=== PATIENT | male | born 1950 | race Caucasian/White ===

== ENCOUNTER 2020-06-16 16:56 | Emergency (ER) | payer SELFPAY ==
[2020-06-16] MEDS: Sodium Chloride 0.9% 1,000 ML IV ONE ×4 (17:46→20:09)
--- NOTE | 2020-06-16 20:05 | EDM.PDOC ---
ED HPI GENERAL MEDICAL PROBLEM - General Chief Complaint: Gastrointestinal Problem Stated Complaint: WEAKNESS Time Seen by Provider: 06/16/20 17:00 Source of Information: Reports: Patient, RN Notes Reviewed History Limitations: Reports: Other (acutely ill) - History of Present Illness INITIAL COMMENTS - FREE TEXT/NARRATIVE: Mr. Ty presents to the ER via ambulatory for weakness and stomachache. States he has blood in his urine yesterday. Noon today his stomach was upset and he vomited around 1530. States he did have a BM today. Patient reports he does not seek medical care regularly. He is hypotensive, he has chest congestion with crackles. His skin is dry with erythema noted to both cheeks. No Fever or diarrhea. Normal HRR. 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 Respiratory: Reports: Other (crackles) Cardiovascular: Reports: Other (hypotensive) : Reports: Hematuria, Incontinence Skin: Reports: Dryness, Bruising, Erythema, Change in Color ED EXAM, GI/ABD - Physical Exam Exam: See Below Exam Limited By: Other (acutely ill) General Appearance: Moderate Distress Ears: Normal External Exam Nose: Normal Inspection, Normal Mucosa Throat/Mouth: Other (Dry oral renea) Head: Atraumatic, Normocephalic Neck: Normal Inspection, Supple, Non-Tender Respiratory/Chest: Crackles Cardiovascular: Normal Peripheral Pulses, Regular Rate, Rhythm GI/Abdominal Exam: Normal Bowel Sounds, Soft, Non-Tender Extremities: Normal Inspection, Normal Range of Motion, Non-Tender Neurological: Alert, Oriented Psychiatric: Normal Affect, Normal Mood Skin Exam: Warm, Dry, Intact Lymphatic: No Adenopathy Course - Vital Signs Last Recorded V/S: Last Vital Signs Temp 36.6 C 06/16/20 17:05 Pulse 102 H 06/16/20 18:18 Resp 18 06/16/20 17:05 BP 106/71 06/16/20 18:18 Pulse Ox 96 06/16/20 18:18 - Orders/Labs/Meds Orders: Active Orders 24 hr Category Date Time Status EKG Documentation Completion [RC] ASDIRECTED Care 06/16/20 19:00 Active Chest Abdomen Pelvis wo Cont [CT] Stat Exams 06/16/20 18:50 Taken UA W/MIS RFLX IF INDICATED [URIN] Stat Lab 06/16/20 17:05 Ordered Labs: Laboratory Tests 06/16/20 06/16/20 06/16/20 Range/Units 18:15 18:15 18:15 WBC 12.4 H (4.0-11.0) K/uL RBC 4.62 (4.50-6.50) M/uL Hgb 14.1 (13.0-18.0) g/dL Hct 42.6 (40.0-54.0) % MCV 92 (76-96) fL MCH 30.5 (27.0-32.0) pg MCHC 33.1 (31.0-35.0) g/dL RDW 13.7 (11.0-16.0) % Plt Count 457 H (150-400) K/uL MPV 10.7 H (6.0-10.0) fL Neut % (Auto) 89.5 H (45.0-70.0) % Lymph % (Auto) 3.6 L (20.0-40.0) % Bourbon % (Auto) 6.7 (3.0-10.0) % Eos % (Auto) 0.0 L (1.0-5.0) % Baso % (Auto) 0.2 (0.0-0.5) % Neut # (Auto) 11.10 H (2.00-7.50) K/uL Lymph # (Auto) 0.45 L (1.50-4.00) K/uL Bourbon # (Auto) 0.83 H (0.20-0.80) K/uL Eos # (Auto) 0.00 L (0.04-0.40) K/uL Baso # (Auto) 0.03 (0.02-0.10) K/uL PT 11.3 (9.0-11.5) sec INR 1.1 (1.0-3.5) D-Dimer, Quantitative (0-400) ng/mL Sodium 136 (136-145) mmol/L Potassium 4.1 (3.5-5.1) mmol/L Chloride 98 (98-107) mmol/L Carbon Dioxide 24.8 (21.0-32.0) mmol/L Anion Gap 17.3 H (5.0-15.0) mmol/L BUN 40 H (8-26) mg/dL Creatinine 2.86 H (0.70-1.30) mg/dL Est Cr Clr Drug Dosing TNP Estimated GFR (MDRD) 22 L (>60) MLS/MIN BUN/Creatinine Ratio 14.0 (6-25) Glucose 138 H (74-100) mg/dL Calcium 9.5 (8.5-10.1) mg/dL Total Bilirubin 1.2 H (0.0-1.0) mg/dL AST 19 (15-37) U/L ALT 26 (12-78) U/L Alkaline Phosphatase 109 (46-116) U/L Total Protein 8.1 (6.4-8.2) g/dL Albumin 2.9 L (3.4-5.0) g/dL Globulin 5.2 H (2.2-4.2) g/dL Albumin/Globulin Ratio 0.6 L (0.8-2.0) 06/16/20 Range/Units 18:15 WBC (4.0-11.0) K/uL RBC (4.50-6.50) M/uL Hgb (13.0-18.0) g/dL Hct (40.0-54.0) % MCV (76-96) fL MCH (27.0-32.0) pg MCHC (31.0-35.0) g/dL RDW (11.0-16.0) % Plt Count (150-400) K/uL MPV (6.0-10.0) fL Neut % (Auto) (45.0-70.0) % Lymph % (Auto) (20.0-40.0) % Bourbon % (Auto) (3.0-10.0) % Eos % (Auto) (1.0-5.0) % Baso % (Auto) (0.0-0.5) % Neut # (Auto) (2.00-7.50) K/uL Lymph # (Auto) (1.50-4.00) K/uL Bourbon # (Auto) (0.20-0.80) K/uL Eos # (Auto) (0.04-0.40) K/uL Baso # (Auto) (0.02-0.10) K/uL PT (9.0-11.5) sec INR (1.0-3.5) D-Dimer, Quantitative 3600 H (0-400) ng/mL Sodium (136-145) mmol/L Potassium (3.5-5.1) mmol/L Chloride (98-107) mmol/L Carbon Dioxide (21.0-32.0) mmol/L Anion Gap (5.0-15.0) mmol/L BUN (8-26) mg/dL Creatinine (0.70-1.30) mg/dL Est Cr Clr Drug Dosing Estimated GFR (MDRD) (>60) MLS/MIN BUN/Creatinine Ratio (6-25) Glucose (74-100) mg/dL Calcium (8.5-10.1) mg/dL Total Bilirubin (0.0-1.0) mg/dL AST (15-37) U/L ALT (12-78) U/L Alkaline Phosphatase (46-116) U/L Total Protein (6.4-8.2) g/dL Albumin (3.4-5.0) g/dL Globulin (2.2-4.2) g/dL Albumin/Globulin Ratio (0.8-2.0) Meds: Medications Discontinued Medications Generic Name Dose Route Start Last Admin Trade Name Freq PRN Reason Stop Dose Admin Sodium Chloride 1,000 mls @ 999 mls/hr 06/16/20 17:00 Normal Saline IV 06/16/20 18:00 .BOLUS ONE Departure - Departure Time of Disposition: 08:15 Disposition: DC/Tfer to Acute Hospital 02 Condition: Poor Clinical Impression: Bladder calculi Renal failure (ARF), acute on chronic Qualifiers: Acute renal failure type: unspecified Chronic kidney disease stage: stage 4 (severe) Qualified Code(s): N17.9 - Acute kidney failure, unspecified; N18.4 - Chronic kidney disease, stage 4 (severe) Aortic aneurysm Qualifiers: Aortic location: abdominal aorta Presence of rupture: without rupture Qualified Code(s): I71.4 - Abdominal aortic aneurysm, without rupture - Discharge Information *PRESCRIPTION DRUG MONITORING PROGRAM REVIEWED*: Not Applicable Referrals: PCP,None [Primary Care Provider] - Care Plan Goals: Transfer to [facility] for ICU treatment. Sepsis Event Note (ED) - Evaluation Sepsis Screening Result: No Definite Risk - Focused Exam Vital Signs: Vital Signs Temp Pulse Resp BP Pulse Ox 06/16/20 18:18 102 H 106/71 96 06/16/20 18:12 102 H 99/68 06/16/20 18:03 94/63 06/16/20 17:46 88/64 L 06/16/20 17:05 36.6 C 105 H 18 96/68 97 06/16/20 17:00 36.6 C 18 96/68 97 - Problem List & Annotations (1) Bladder calculi Status: Acute Priority: High Current Visit: Yes (2) Renal failure (ARF), acute on chronic SNOMED Code(s): 645213040 Code(s): N17.9 - ACUTE KIDNEY FAILURE, UNSPECIFIED; N18.9 - CHRONIC KIDNEY DISEASE, UNSPECIFIED Status: Acute Priority: High Current Visit: Yes Qualifiers: Acute renal failure type: unspecified Chronic kidney disease stage: stage 4 (severe) Qualified Code(s): N17.9 - Acute kidney failure, unspecified; N18.4 - Chronic kidney disease, stage 4 (severe) (3) Aortic aneurysm SNOMED Code(s): 74153294 Code(s): I71.9 - AORTIC ANEURYSM OF UNSPECIFIED SITE, WITHOUT RUPTURE Status: Acute Priority: Medium Current Visit: Yes Qualifiers: Aortic location: abdominal aorta Presence of rupture: without rupture Qualified Code(s): I71.4 - Abdominal aortic aneurysm, without rupture - My Orders Last 24 Hours: My Active Orders 06/16/20 17:05 UA W/MSI RFLX IF INDICATED [URIN] Stat 06/16/20 18:50 Chest Abdomen Pelvis wo Cont [CT] Stat 06/16/20 19:00 EKG Documentation Completion [RC] ASDIRECTED - Assessment/Plan Last 24 Hours: My Active Orders 06/16/20 17:05 UA W/MIS RFLX IF INDICATED [URIN] Stat 06/16/20 18:50 Chest Abdomen Pelvis wo Cont [CT] Stat 06/16/20 19:00 EKG Documentation Completion [RC] ASDIRECTED Assessment:: Acute Renal failure with hematuria. AA. Plan: Transfer to [facility] for ICU admission and care.
[2020-06-16] MEDS ORDERED: Piperacillin/Tazobactam 4.5 GM in Sodium Chloride 0.9% 100 ML IV SCH (20:15)
--- NOTE | 2020-06-17 07:54 | CT ---
DATE OF SERVICE: 06/16/20 CLINICAL DATA: abdominal pain, hematemesis UNENHANCED CHEST CT: Multislice acquisition through the chest without IV contrast was performed. No priors. The lungs are clear. No pneumothorax. No pleural effusions. The heart size is normal. There are moderate coronary artery calcifications. No pericardial effusion. The ascending aorta is ectatic. It measures 3.8 cm in diameter. There is a small hiatal hernia. There is gas and fluid throughout the thoracic esophagus, most likely secondary to GE reflux. No hiatal or mediastinal adenopathy. There is degenerative disc disease throughout the thoracic spine. UNENHANCED ABDOMEN AND PELVIC CT: Multislice acquisition through the abdomen and pelvis without IV or oral contrast was performed. No priors. The heart size is normal. There are moderate coronary artery calcifications. There is a small hiatal hernia. The liver is normal size. It has lobulated contour consistent with cirrhosis. No focal hepatic lesions. The gallbladder appears normal. The spleen appears normal. The pancreas appears normal. The right and left adrenals appear normal. There is mild atrophy of both kidneys. There is a 3.8 cm simple-appearing cyst projecting from the interpolar region of the right kidney. No nephrocalcinosis or nephrolithiasis. There is hydronephrosis and hydroureter bilaterally down to the ureterovesical junctions. There is mild perinephric fat stranding bilaterally. This is most likely related to aging. There are multiple large calculi noted within the bladder. The bladder wall is thickened. There is also a small amount of gas within the bladder. This is probably related to catheterization. No evidence of appendicitis. There is free intraperitoneal fluid adjacent to the liver and in the right pericolic gutter consistent with ascites. There is aneurysmal dilatation of the distal abdominal aorta. It measures 5.2 cm in diameter. No evidence of leakage. No free air. No dilated loops of bowel. No adenopathy. There is a ventral hernia containing fat and a loop of small bowel. No evidence of obstruction associated with it. I do not see any other significant findings. There is degenerative disc disease throughout the lumbar spine. [id number] [facility]
== END 2020-06-16 20:55 ==
LOC: LB.ED 16:56
DX: N17.9 Acute kidney failure, unspecified (principal); I71.4 Abdominal aortic aneurysm, without rupture; N18.4 Chronic kidney disease, stage 4 (severe); N21.0 Calculus in bladder
CPT/HCPCS: 36415; 71250; 74176; 80053; 81001; 85025; 85379; 85610; 93005; 96365; 99285; 99285-25; J2543; J7030

== ENCOUNTER 2020-10-22 05:40 | Emergency (ER) | payer MEDICAID, MEDICARE ==
--- NOTE | 2020-10-22 06:16 | EDM.PDOC ---
ED HPI GENERAL MEDICAL PROBLEM - General Chief Complaint: Genitourinary Problem Stated Complaint: CATHETER PLUGGED Time Seen by Provider: 10/22/20 06:00 Source of Information: Reports: Patient History Limitations: Reports: No Limitations - History of Present Illness INITIAL COMMENTS - FREE TEXT/NARRATIVE: pt presents with clogged urinary catheter. states he has monthly cath changes and is due to see urology on saturday. pt states he noticed reduced output last night but he denies fever, chills, pain other than associated with low urinary output. Onset: Today - Related Data Allergies Allergy/AdvReac Type Severity Reaction Status Date / Time No Known Allergies Allergy Verified 06/16/20 20:07 Home Meds: Home Meds NK [No Known Home Meds] 06/16/20 [History] Past Medical History Other Gastrointestinal History: hernia Social & Family History - Family History Family Medical History: No Pertinent Family History - Caffeine Use Caffeine Use: Reports: Coffee ED ROS GENERAL - Review of Systems Review Of Systems: Comprehensive ROS is negative, except as noted in HPI. ED EXAM, GENERAL - Physical Exam Exam: See Below Exam Limited By: No Limitations General Appearance: Alert, WD/WN Respiratory/Chest: No Respiratory Distress, Normal Breath Sounds, No Accessory Muscle Use Cardiovascular: Normal Peripheral Pulses, Regular Rate, Rhythm, No Edema GI/Abdominal: Tender (suprapubic TTP) Departure - Departure Time of Disposition: 06:15 Disposition: Home, Self-Care 01 Condition: Good Clinical Impression: Garcia catheter problem - Discharge Information *PRESCRIPTION DRUG MONITORING PROGRAM REVIEWED*: Not Applicable *COPY OF PRESCRIPTION DRUG MONITORING REPORT IN PATIENT PATSY: Not Applicable - Problem List & Annotations (1) Garcia catheter problem SNOMED Code(s): 157257997 Code(s): T83.9XXA - UNSP COMPLICATION OF GENITOURINARY PROSTH DEV/GRFT, INIT Status: Acute Qualifiers: Encounter type: initial encounter Qualified Code(s): T83.9XXA - Unspecified complication of genitourinary prosthetic device, implant and graft, initial encounter - Problem List Review Problem List Initiated/Reviewed/Updated: Yes - Assessment/Plan Assessment:: garcia cath problem: flush catheter and reattach leg bag. if this occurs in the future, catheter removal and replacement.
== END 2020-10-22 06:35 | disposition home or self-care (01) ==
LOC: LB.ED 05:40
DX: T83.098A Other mechanical complication of other urinary catheter, initial encounter (principal)
CPT/HCPCS: 51702; 99283-25